=== PATIENT | male | born 1990 | race Caucasian/White ===

== ENCOUNTER 2019-09-17 10:26 | Day surgery (SDC) | payer OTHER ==
[2019-09-17] MEDS ORDERED: HYDROmorphone 0.5 MG/0.5 ML Syringe IVPUSH ONE (10:58)
[2019-09-17] MEDS ORDERED: Ondansetron 4 MG/2 ML SDV IVPUSH ONE (10:58)
[2019-09-17] MEDS ORDERED: Sodium Chloride 0.9% 1,000 ML IV SCH (11:00)
--- NOTE | 2019-09-17 11:03 | EDM.PDOC ---
<Eulogio Banks R - Last Filed: 09/17/19 10:58> ED HPI GENERAL MEDICAL PROBLEM - General Chief Complaint: Abdominal Pain Stated Complaint: R SIDE ABDOMINAL PAIN UNDER RIBS Time Seen by Provider: 09/17/19 10:32 Source of Information: Reports: Patient History Limitations: Reports: No Limitations - History of Present Illness INITIAL COMMENTS - FREE TEXT/NARRATIVE: Joby is a 29 YO male that presents to the ED for RUQ pain. Pain began suddenly at approximately 0800. Described as a sharp, stabbing sensation with radiation to the right back. Rated at a 9/10 and is constant. Nothing makes the pain better or worse. He has had two similar episodes over the past month with each lasting about 3 hours. Denies nausea, vomiting, fever, shortness of breath, chest pain, urinary changes, constipation, or diarrhea. Denies drinking alcohol. No OTC medications taken for symptom relief. Onset: Today, Sudden Onset Date: 09/17/19 Onset Time: 08:00 Duration: Hour(s): Location: Reports: Abdomen Quality: Reports: Sharp, Stabbing Improves with: Reports: None Worsens with: Reports: None Right Upper Abdomen Pain Score (Numeric/FACES): 9 - Related Data Allergies Allergy/AdvReac Type Severity Reaction Status Date / Time No Known Allergies Allergy Verified 09/17/19 10:36 Home Meds: Home Meds Acetaminophen/HYDROcodone [[place] 325-5 MG] 1 tab PO Q4H PRN 14 Days #25 tablet 09/17/19 [Rx] Cholecalciferol (Vitamin D3) [Vitamin D3] 1,000 unit PO DAILY 09/17/19 [History] Docusate Sodium [Colace] 100 mg PO BID 20 Days #40 cap 09/17/19 [Rx] Ibuprofen 600 mg PO Q6HR PRN 20 Days #80 tablet 09/17/19 [Rx] gemfibroziL [Gemfibrozil] 600 mg PO DAILY 09/17/19 [History] Past Medical History Cardiovascular History: Reports: High Cholesterol - Past Surgical History Neurological Surgical History: Reports: Other (See Below) Other Neurological Surgeries/Procedures: Nerve Stimulator Musculoskeletal Surgical History: Reports: Other (See Below) Other Musculoskeletal Surgeries/Procedures:: Left ankle surgery. Social & Family History - Tobacco Use Smoking Status *Q: Never Smoker - Caffeine Use Caffeine Use: Reports: Soda - Alcohol Use Alcohol Use History: No - Recreational Drug Use Recreational Drug Use: No ED ROS GENERAL - Review of Systems Review Of Systems: See Below Constitutional: Denies: Fever Respiratory: Denies: Shortness of Breath Cardiovascular: Denies: Chest Pain GI/Abdominal: Reports: Abdominal Pain. Denies: Constipation, Diarrhea, Nausea, Vomiting : Denies: Dysuria, Flank Pain, Frequency, Urgency, Urinary Retention ED EXAM, GI/ABD - Physical Exam Exam: See Below Exam Limited By: No Limitations General Appearance: Alert, Mild Distress (Discomfort due to pain. ) Head: Atraumatic, Normocephalic Respiratory/Chest: No Respiratory Distress, Lungs Clear, Normal Breath Sounds, No Accessory Muscle Use, Chest Non-Tender Cardiovascular: Regular Rate, Rhythm, No Gallop, No JVD, No Murmur, No Rub GI/Abdominal Exam: Normal Bowel Sounds, Soft, No Distention, Tender (Tenderness to palpation in RUQ.) Neurological: Alert, Oriented, Normal Cognition Skin Exam: Warm, Dry, Normal Color Departure - Departure Disposition: DC/Tfer to [facility] Access [facility] Clinical Impression: Sludge in gallbladder Abdominal pain Qualifiers: Abdominal location: right upper quadrant Qualified Code(s): R10.11 - Right upper quadrant pain - Discharge Information Sepsis Event Note (ED) - Evaluation Sepsis Screening Result: No Definite Risk <John Paul Larry - Last Filed: 09/17/19 18:10> ED HPI GENERAL MEDICAL PROBLEM - General Source of Information: Reports: RN Notes Reviewed ED ROS GENERAL - Review of Systems HEENT: Reports: No Symptoms Musculoskeletal: Reports: Back Pain Skin: Reports: No Symptoms Neurological: Reports: No Symptoms ED EXAM, GI/ABD - Physical Exam General Appearance: Moderate Distress GI/Abdominal Exam: Guarding (mild). No: Rebound Extremities: Normal Inspection, Normal Range of Motion Neurological: No Motor/Sensory Deficits Skin Exam: No Rash Course - Vital Signs Last Recorded V/S: Last Vital Signs Temp 97.4 F 09/17/19 17:45 Pulse 92 09/17/19 10:32 Resp 18 09/17/19 17:45 BP 115/73 09/17/19 17:45 Pulse Ox 100 09/17/19 17:45 - Orders/Labs/Meds Orders: Active Orders 24 hr Category Date Time Status Patient Status [ADT] Routine ADT 09/17/19 14:30 Active Communication Order [RC] ASDIRECTED Care 09/17/19 15:25 Active Cooling Warming Measures [RC] ASDIRECTED Care 09/17/19 15:25 Active Oxygen Therapy [RC] ASDIRECTED Care 09/17/19 15:25 Active Pulse Oximetry [RC] ASDIRECTED Care 09/17/19 15:25 Active Ready for Discharge [RC] PER UNIT ROUTINE Care 09/17/19 16:49 Active Vital Signs [RC] Q15M Care 09/17/19 15:25 Active Abdomen Ltd [US] Stat Exams 09/17/19 10:59 Taken HYDROmorphone [Dilaudid] Med 09/17/19 15:25 Active 0.5 mg IVPUSH Q10M PRN Sodium Chloride 0.9% [Normal Saline] 1,000 ml Med 09/17/19 11:00 Active IV ASDIRECTED fentaNYL [Sublimaze] Med 09/17/19 15:25 Active 100 mcg IVPUSH Q5M PRN Schedule Procedure [COMM] Stat Oth 09/17/19 14:32 Ordered Medication Orders Fentanyl (Sublimaze) 100 mcg IVPUSH Q5M PRN PRN Reason: Pain Last Admin: 09/17/19 17:15 Dose: 100 mcg Documented by: EULOGIO Hydromorphone HCl (Dilaudid) 0.5 mg IVPUSH Q10M PRN PRN Reason: Pain (severe 7-10) Sodium Chloride (Normal Saline) 1,000 mls @ 150 mls/hr IV ASDIRECTED JA Last Admin: 09/17/19 11:19 Dose: 150 mls/hr Documented by: HORACIO Labs: Laboratory Tests 09/17/19 09/17/19 09/17/19 Range/Units 10:40 10:40 10:40 WBC 9.76 H (4.23-9.07) K/mm3 RBC 5.75 (4.63-6.08) M/mm3 Hgb 16.8 (13.7-17.5) gm/dl Hct 49.3 (40.1-51.0) % MCV 85.7 (79.0-92.2) fl MCH 29.2 (25.7-32.2) pg MCHC 34.1 (32.2-35.5) g/dl RDW Std Deviation 41.6 (35.1-43.9) fL Plt Count 314 (163-337) K/mm3 MPV 11.0 (9.4-12.3) fl Neut % (Auto) 58.9 (34.0-67.9) % Lymph % (Auto) 27.5 (21.8-53.1) % [place] % (Auto) 8.3 (5.3-12.2) % Eos % (Auto) 4.3 (0.8-7.0) Baso % (Auto) 0.8 (0.1-1.2) % Neut # (Auto) 5.75 H (1.78-5.38) K/mm3 Lymph # (Auto) 2.68 (1.32-3.57) K/mm3 [place] # (Auto) 0.81 (0.30-0.82) K/mm3 Eos # (Auto) 0.42 (0.04-0.54) K/mm3 Baso # (Auto) 0.08 (0.01-0.08) K/mm3 Sodium 138 (136-145) mEq/L Potassium 4.0 (3.5-5.1) mEq/L Chloride 104 (98-107) mEq/L Carbon Dioxide 24 (21-32) mEq/L Anion Gap 14.0 (5-15) BUN 14 (7-18) mg/dL Creatinine 1.3 (0.7-1.3) mg/dL Est Cr Clr Drug Dosing 90.37 mL/min Estimated GFR (MDRD) > 60 (>60) mL/min BUN/Creatinine Ratio 10.8 L (14-18) Glucose 98 (74-106) mg/dL Calcium 9.0 (8.5-10.1) mg/dL Total Bilirubin 0.3 (0.2-1.0) mg/dL GGT 28 (15-85) U/L AST 27 (15-37) U/L ALT 61 (16-63) U/L Alkaline Phosphatase 107 (46-116) U/L Total Protein 7.7 (6.4-8.2) g/dl Albumin 4.4 (3.4-5.0) g/dl Globulin 3.3 gm/dL Albumin/Globulin Ratio 1.3 (1-2) Lipase 82 (73-393) U/L COVID-19 (JENNIE) (NEGATIVE) 09/17/19 Range/Units 14:23 WBC (4.23-9.07) K/mm3 RBC (4.63-6.08) M/mm3 Hgb (13.7-17.5) gm/dl Hct (40.1-51.0) % MCV (79.0-92.2) fl MCH (25.7-32.2) pg MCHC (32.2-35.5) g/dl RDW Std Deviation (35.1-43.9) fL Plt Count (163-337) K/mm3 MPV (9.4-12.3) fl Neut % (Auto) (34.0-67.9) % Lymph % (Auto) (21.8-53.1) % [place] % (Auto) (5.3-12.2) % Eos % (Auto) (0.8-7.0) Baso % (Auto) (0.1-1.2) % Neut # (Auto) (1.78-5.38) K/mm3 Lymph # (Auto) (1.32-3.57) K/mm3 [place] # (Auto) (0.30-0.82) K/mm3 Eos # (Auto) (0.04-0.54) K/mm3 Baso # (Auto) (0.01-0.08) K/mm3 Sodium (136-145) mEq/L Potassium (3.5-5.1) mEq/L Chloride (98-107) mEq/L Carbon Dioxide (21-32) mEq/L Anion Gap (5-15) BUN (7-18) mg/dL Creatinine (0.7-1.3) mg/dL Est Cr Clr Drug Dosing mL/min Estimated GFR (MDRD) (>60) mL/min BUN/Creatinine Ratio (14-18) Glucose (74-106) mg/dL Calcium (8.5-10.1) mg/dL Total Bilirubin (0.2-1.0) mg/dL GGT (15-85) U/L AST (15-37) U/L ALT (16-63) U/L Alkaline Phosphatase (46-116) U/L Total Protein (6.4-8.2) g/dl Albumin (3.4-5.0) g/dl Globulin gm/dL Albumin/Globulin Ratio (1-2) Lipase (73-393) U/L COVID-19 (JENNIE) Negative (NEGATIVE) Meds: Medications Generic Name Dose Route Start Last Admin Trade Name Freq PRN Reason Stop Dose Admin Fentanyl 100 mcg 09/17/19 15:25 09/17/19 17:15 Sublimaze IVPUSH 100 mcg Q5M PRN Administration Pain Hydromorphone HCl 0.5 mg 09/17/19 15:25 Dilaudid IVPUSH Q10M PRN Pain (severe 7-10) Sodium Chloride 1,000 mls @ 150 mls/hr 09/17/19 11:00 09/17/19 11:19 Normal Saline IV 150 mls/hr ASDIRECTED JA Administration Discontinued Medications Generic Name Dose Route Start Last Admin Trade Name Freq PRN Reason Stop Dose Admin Bupivacaine HCl/Epinephrine Bitart Confirm 09/17/19 14:10 09/17/19 15:25 Marcaine 0.5%/Epinephrine 1:200,000 Administered 09/17/19 14:11 30 ml Dose Administration 50 ml .ROUTE .STK-MED ONE Fentanyl Confirm 09/17/19 14:24 Sublimaze Administered 09/17/19 14:25 Dose 250 mcg .ROUTE .STK-MED ONE Glycopyrrolate Confirm 09/17/19 15:34 Administered 09/17/19 15:35 Dose 1 mg .ROUTE .STK-MED ONE Hydromorphone HCl 0.5 mg 09/17/19 10:58 09/17/19 11:21 Dilaudid IVPUSH 09/17/19 10:59 0.5 mg ONETIME ONE Administration Hydromorphone HCl Confirm 09/17/19 15:37 Dilaudid Administered 09/17/19 15:38 Dose 0.5 mg .ROUTE .STK-MED ONE Cefuroxime Sodium 1.5 gm/ 50 mls @ 100 mls/hr 09/17/19 13:21 Sodium Chloride IV 09/17/19 13:50 ONETIME ONE Cefepime HCl 2 gm/ Premix 50 mls @ 100 mls/hr 09/17/19 13:38 09/17/19 13:50 IV 09/17/19 14:07 100 mls/hr ONETIME ONE Administration Lidocaine HCl Confirm 09/17/19 14:25 Xylocaine-Mpf 1% Administered 09/17/19 14:26 Dose 4 mls @ as directed .ROUTE .STK-MED ONE Ketorolac Tromethamine Confirm 09/17/19 16:15 Toradol Administered 09/17/19 16:16 Dose 30 mg .ROUTE .STK-MED ONE Lidocaine/Epinephrine Confirm 09/17/19 14:10 09/17/19 15:25 Xylocaine 1% With Epinephrine 1:100,000 Administered 09/17/19 14:11 30 ml Dose Administration 40 ml .ROUTE .STK-MED ONE Midazolam HCl Confirm 09/17/19 14:24 Versed 1 Mg/Ml Administered 09/17/19 14:25 Dose 4 mg .ROUTE .STK-MED ONE Neostigmine Methylsulfate Confirm 09/17/19 16:09 Neostigmine Methylsulfate Administered 09/17/19 16:10 Dose 5 mg .ROUTE .STK-MED ONE Ondansetron HCl 4 mg 09/17/19 10:58 09/17/19 11:19 Zofran IVPUSH 09/17/19 10:59 4 mg ONETIME ONE Administration Ondansetron HCl Confirm 09/17/19 14:25 Zofran Administered 09/17/19 14:26 Dose 8 mg .ROUTE .STK-MED ONE Propofol Confirm 09/17/19 14:24 Diprivan 20 Ml Administered 09/17/19 14:25 Dose 200 mg .ROUTE .STK-MED ONE Rocuronium [place] Confirm 09/17/19 14:23 Zemuron Administered 09/17/19 14:24 Dose 50 mg .ROUTE .STK-MED ONE - Re-Assessments/Exams Free Text/Narrative Re-Assessment/Exam: 09/17/19 13:41 US showed enlarged Gallbladder, 1.6 cm sludgeball in the fundus, 1.3 stone neck region. Destiney up to 2.2 mm thjick. common bile duct is nl. Have given dilaudid 0.5 mg IV and that has helped quite a lot but still has some pain R upper abd, rates it a 3 at this time. He is still moderately tender R upper abd. He lives [place] from [facility] in [place]. It does not seem jorgensen to send him home right now with his pain and tenderness still what it is. His WBC is elevated but labs otherwise nl. Have discussed with Dr Agustin, she see him with plan to take it out this afternoon. IV abx ordered. 09/17/19 13:44 09/17/19 13:50. Initial hx and exam was done by A EVY Banks student. I agree with his hx and exam as documented. I have also interviewed and examined patient. Findings and plan discussed with patient and his mother present in room. Departure - Departure Time of Disposition: 13:45 Condition: Fair Sepsis Event Note (ED) - Focused Exam Vital Signs: Vital Signs Temp Pulse Resp BP Pulse Ox Pulse Ox 09/17/19 17:45 97.4 F 18 115/73 100 09/17/19 17:30 15 110/71 100 09/17/19 17:25 99 09/17/19 17:15 10 L 127/78 100 09/17/19 17:12 100 09/17/19 17:06 100 09/17/19 17:00 12 135/91 H 100 09/17/19 16:57 100 09/17/19 16:45 13 125/77 100 09/17/19 16:41 97.6 F 10 L 117/80 100 100 09/17/19 10:32 96.8 F L 92 16 160/109 H 99 - My Orders Last 24 Hours: My Active Orders 09/17/19 10:59 Abdomen Ltd [US] Stat 09/17/19 11:00 Sodium Chloride 0.9% [Normal Saline] 1,000 ml IV ASDIRECTED 09/17/19 14:30 Patient Status [ADT] Routine 09/17/19 14:32 Schedule Procedure [COMM] Stat - Assessment/Plan Last 24 Hours: My Active Orders 09/17/19 10:59 Abdomen Ltd [US] Stat 09/17/19 11:00 Sodium Chloride 0.9% [Normal Saline] 1,000 ml IV ASDIRECTED 09/17/19 14:30 Patient Status [ADT] Routine 09/17/19 14:32 Schedule Procedure [COMM] Stat
[2019-09-17] MEDS ORDERED: Cefepime 2 GM in Premix Bag 1 BAG IV ONE (13:38)
--- NOTE | 2019-09-17 14:04 | PCM.HP.2 ---
H&P History of Present Illness - General Date of Service: 09/17/19 Source of Information: Patient, Provider History Limitations: Reports: No Limitations - History of Present Illness Initial Comments - Free Text/Narative: The patient is a 29-year-old gentleman who presents with right upper quadrant pain occurring for approximately 5 hours. He reports having eaten donuts the night before, and his pain started around 8 AM this morning. The pain radiates down his right side. Has had 2 prior episodes of this pain in the past. He denies any nausea or vomiting. He has had no pale stools or dark urine. He denies any jaundice or icterus. He presented to the emergency room and had appropriate work-up including CBC, CMP and ultrasound. He had mild elevation in his white blood cell count but normal liver enzymes and normal total bilirubin. His ultrasound showed evidence of cholelithiasis. His pain is improved with pain medication but did not completely resolve. Right Upper Abdomen Pain Score (Numeric/FACES): 9 - Related Data Allergies/Adverse Reactions: Allergies Allergy/AdvReac Type Severity Reaction Status Date / Time No Known Allergies Allergy Verified 09/17/19 10:36 Home Medications: Home Meds Cholecalciferol (Vitamin D3) [Vitamin D3] 1,000 unit PO DAILY 09/17/19 [History] gemfibroziL [Gemfibrozil] 600 mg PO DAILY 09/17/19 [History] Past Medical History HEENT History: Reports: None Cardiovascular History: Reports: High Cholesterol Respiratory History: Reports: None Gastrointestinal History: Reports: None Genitourinary History: Reports: None Psychiatric History: Reports: None Endocrine/Metabolic History: Reports: None Hematologic History: Reports: None Immunologic History: Reports: None Oncologic (Cancer) History: Reports: None Dermatologic History: Reports: None - Infectious Disease History Infectious Disease History: Reports: None - Past Surgical History Neurological Surgical History: Reports: Other (See Below) Other Neurological Surgeries/Procedures: Nerve Stimulator Musculoskeletal Surgical History: Reports: Other (See Below) Other Musculoskeletal Surgeries/Procedures:: Left ankle surgery. Social & Family History - Family History Cardiac: Reports: None Respiratory: Reports: None - Tobacco Use Smoking Status *Q: Never Smoker - Caffeine Use Caffeine Use: Reports: Soda - Recreational Drug Use Recreational Drug Use: No H&P Review of Systems - Review of Systems: Review Of Systems: See Below General: Reports: No Symptoms HEENT: Reports: No Symptoms Pulmonary: Reports: No Symptoms Cardiovascular: Reports: No Symptoms Gastrointestinal: Reports: Abdominal Pain. Denies: Constipation, Diarrhea, Hematochezia, Melena Genitourinary: Reports: No Symptoms Musculoskeletal: Reports: Leg Pain Skin: Reports: No Symptoms Neurological: Reports: No Symptoms Hematologic/Lymphatic: Reports: No Symptoms Exam - Exam Exam: See Below - Vital Signs Vital Signs: Last Vital Signs Temp 36.0 C L 09/17/19 10:32 Pulse 92 09/17/19 10:32 Resp 16 09/17/19 10:32 BP 160/109 H 09/17/19 10:32 Pulse Ox 99 09/17/19 10:32 Weight: 96.162 kg - Exam Quality Assessment: No: Supplemental Oxygen General: Alert, Oriented HEENT: Conjunctiva Clear, EOMI Neck: Supple Lungs: Clear to Auscultation, Normal Respiratory Effort Cardiovascular: Regular Rate, Regular Rhythm GI/Abdominal Exam: Soft, No Distention, Tender (in RUQ), Hernia (small umbilical hernia) Extremities: No Pedal Edema Peripheral Pulses: 2+: Dorsalis Pedis (L), Dorsalis Pedis (R) Skin: Warm, Dry, Intact - Patient Data Lab Results Last 24 hrs: Laboratory Results - last 24 hr 09/17/19 09/17/19 09/17/19 Range/Units 10:40 10:40 10:40 WBC 9.76 H (4.23-9.07) K/mm3 RBC 5.75 (4.63-6.08) M/mm3 Hgb 16.8 (13.7-17.5) gm/dl Hct 49.3 (40.1-51.0) % MCV 85.7 (79.0-92.2) fl MCH 29.2 (25.7-32.2) pg MCHC 34.1 (32.2-35.5) g/dl RDW Std Deviation 41.6 (35.1-43.9) fL Plt Count 314 (163-337) K/mm3 MPV 11.0 (9.4-12.3) fl Neut % (Auto) 58.9 (34.0-67.9) % Lymph % (Auto) 27.5 (21.8-53.1) % [place] % (Auto) 8.3 (5.3-12.2) % Eos % (Auto) 4.3 (0.8-7.0) Baso % (Auto) 0.8 (0.1-1.2) % Neut # (Auto) 5.75 H (1.78-5.38) K/mm3 Lymph # (Auto) 2.68 (1.32-3.57) K/mm3 [place] # (Auto) 0.81 (0.30-0.82) K/mm3 Eos # (Auto) 0.42 (0.04-0.54) K/mm3 Baso # (Auto) 0.08 (0.01-0.08) K/mm3 Sodium 138 (136-145) mEq/L Potassium 4.0 (3.5-5.1) mEq/L Chloride 104 (98-107) mEq/L Carbon Dioxide 24 (21-32) mEq/L Anion Gap 14.0 (5-15) BUN 14 (7-18) mg/dL Creatinine 1.3 (0.7-1.3) mg/dL Est Cr Clr Drug Dosing 90.37 mL/min Estimated GFR (MDRD) > 60 (>60) mL/min BUN/Creatinine Ratio 10.8 L (14-18) Glucose 98 (74-106) mg/dL Calcium 9.0 (8.5-10.1) mg/dL Total Bilirubin 0.3 (0.2-1.0) mg/dL GGT 28 (15-85) U/L AST 27 (15-37) U/L ALT 61 (16-63) U/L Alkaline Phosphatase 107 (46-116) U/L Total Protein 7.7 (6.4-8.2) g/dl Albumin 4.4 (3.4-5.0) g/dl Globulin 3.3 gm/dL Albumin/Globulin Ratio 1.3 (1-2) Lipase 82 (73-393) U/L Result Diagrams: 09/17/19 10:40 09/17/19 10:40 Sepsis Event Note - Evaluation Sepsis Screening Result: No Definite Risk - Focused Exam Vital Signs: Vital Signs Temp Pulse Resp BP Pulse Ox 09/17/19 10:32 36.0 C L 92 16 160/109 H 99 Date Exam was Performed: 09/17/19 Time Exam was Performed: 14:49 *Q Meaningful Use (ADM) - VTE Risk Assess *Q Each Risk Factor Represents 1 Point: Minor Surgery Planned, Obesity ( BMI > 25 kg/m2) Total Score 1 Point Risk Factors: 2 - Problem List (1) Acute cholecystitis SNOMED Code(s): 56809414 ICD Code: K81.0 - ACUTE CHOLECYSTITIS Status: Acute Current Visit: Yes Problem List Initiated/Reviewed/Updated: Yes Orders Last 24hrs: Active Orders 24 hr Category Date Time Status Abdomen Ltd [US] Stat Exams 09/17/19 10:59 Taken Cefepime [Maxipime in D5W 2 GM/50 ML] 2 gm Med 09/17/19 13:38 Active Premix Bag 1 bag IV ONETIME Sodium Chloride 0.9% [Normal Saline] 1,000 ml Med 09/17/19 11:00 Active IV ASDIRECTED Medication Orders Sodium Chloride (Normal Saline) 1,000 mls @ 150 mls/hr IV ASDIRECTED JA Last Admin: 09/17/19 11:19 Dose: 150 mls/hr Documented by: HORACIO Cefepime HCl 2 gm/ Premix 50 mls @ 100 mls/hr IV ONETIME ONE Stop: 09/17/19 14:07 Last Admin: 09/17/19 13:50 Dose: 100 mls/hr Documented by: HORACIO Assessment/Plan Comment:: 29-year-old male with early acute cholecystitis - Plan for OR and laparoscopic cholecystectomy, possible open. Discussed risks of bleeding, infection, possible intra-abdominal injury and possible injury to bile ducts. The patient's written consent was obtained -IV cefuroxime 2 g x 1 -NPO -Plan for discharge home later today if patient is doing well. We will assess need for inpatient stay based on intra-operative findings Anny Cueto MD General surgery - Mortality Measure Prognosis:: Good
--- NOTE | 2019-09-17 14:08 | PCM.PREANE ---
Preanesthetic Assessment - Procedure Proposed Procedure: Laparoscopic Cholecystectomy - Anesthesia/Transfusion/Family Hx Anesthesia History: Prior Anesthesia Without Reaction Transfusion History: No Prior Transfusion(s) - Review of Systems General: No Symptoms Pulmonary: No Symptoms Cardiovascular: No Symptoms Gastrointestinal: No Symptoms Neurological: No Symptoms Other: Reports: None - Physical Assessment NPO Status Date: 09/16/19 NPO Status Time: 23:30 Vital Signs: Last Vital Signs Temp 96.8 F L 09/17/19 10:32 Pulse 92 09/17/19 10:32 Resp 16 09/17/19 10:32 BP 160/109 H 09/17/19 10:32 Pulse Ox 99 09/17/19 10:32 Height: 1.83 m Weight: 96.162 kg ASA Class: 2 Mental Status: Alert & Oriented x3 Airway Class: Mallampati = 1 Dentition: Reports: Normal Dentition Thyro-Mental Finger Breadths: 3 Mouth Opening Finger Breadths: 3 ROM/Head Extension: Full Lungs: Clear to Auscultation, Normal Respiratory Effort Cardiovascular: Regular Rate, Regular Rhythm - Lab Values: Laboratory Last Values WBC 9.76 K/mm3 (4.23-9.07) H 09/17/19 10:40 RBC 5.75 M/mm3 (4.63-6.08) 09/17/19 10:40 Hgb 16.8 gm/dl (13.7-17.5) 09/17/19 10:40 Hct 49.3 % (40.1-51.0) 09/17/19 10:40 MCV 85.7 fl (79.0-92.2) 09/17/19 10:40 MCH 29.2 pg (25.7-32.2) 09/17/19 10:40 MCHC 34.1 g/dl (32.2-35.5) 09/17/19 10:40 RDW Std Deviation 41.6 fL (35.1-43.9) 09/17/19 10:40 Plt Count 314 K/mm3 (163-337) 09/17/19 10:40 MPV 11.0 fl (9.4-12.3) 09/17/19 10:40 Neut % (Auto) 58.9 % (34.0-67.9) 09/17/19 10:40 Lymph % (Auto) 27.5 % (21.8-53.1) 09/17/19 10:40 [place] % (Auto) 8.3 % (5.3-12.2) 09/17/19 10:40 Eos % (Auto) 4.3 (0.8-7.0) 09/17/19 10:40 Baso % (Auto) 0.8 % (0.1-1.2) 09/17/19 10:40 Neut # (Auto) 5.75 K/mm3 (1.78-5.38) H 09/17/19 10:40 Lymph # (Auto) 2.68 K/mm3 (1.32-3.57) 09/17/19 10:40 [place] # (Auto) 0.81 K/mm3 (0.30-0.82) 09/17/19 10:40 Eos # (Auto) 0.42 K/mm3 (0.04-0.54) 09/17/19 10:40 Baso # (Auto) 0.08 K/mm3 (0.01-0.08) 09/17/19 10:40 Sodium 138 mEq/L (136-145) 09/17/19 10:40 Potassium 4.0 mEq/L (3.5-5.1) 09/17/19 10:40 Chloride 104 mEq/L (98-107) 09/17/19 10:40 Carbon Dioxide 24 mEq/L (21-32) 09/17/19 10:40 Anion Gap 14.0 (5-15) 09/17/19 10:40 BUN 14 mg/dL (7-18) 09/17/19 10:40 Creatinine 1.3 mg/dL (0.7-1.3) 09/17/19 10:40 Est Cr Clr Drug Dosing 90.37 mL/min 09/17/19 10:40 Estimated GFR (MDRD) > 60 mL/min (>60) 09/17/19 10:40 BUN/Creatinine Ratio 10.8 (14-18) L 09/17/19 10:40 Glucose 98 mg/dL (74-106) 09/17/19 10:40 Calcium 9.0 mg/dL (8.5-10.1) 09/17/19 10:40 Total Bilirubin 0.3 mg/dL (0.2-1.0) 09/17/19 10:40 GGT 28 U/L (15-85) 09/17/19 10:40 AST 27 U/L (15-37) 09/17/19 10:40 ALT 61 U/L (16-63) 09/17/19 10:40 Alkaline Phosphatase 107 U/L (46-116) 09/17/19 10:40 Total Protein 7.7 g/dl (6.4-8.2) 09/17/19 10:40 Albumin 4.4 g/dl (3.4-5.0) 09/17/19 10:40 Globulin 3.3 gm/dL 09/17/19 10:40 Albumin/Globulin Ratio 1.3 (1-2) 09/17/19 10:40 Lipase 82 U/L (73-393) 09/17/19 10:40 - Allergies Allergies/Adverse Reactions: Allergies Allergy/AdvReac Type Severity Reaction Status Date / Time No Known Allergies Allergy Verified 09/17/19 10:36 - Acknowledgements Anesthesia Type Planned: General Anesthesia Pt an Appropriate Candidate for the Planned Anesthesia: Yes Alternatives and Risks of Anesthesia Discussed w Pt/Guardian: Yes Pt/Guardian Understands and Agrees with Anesthesia Plan: Yes PreAnesthesia Questionnaire Cardiovascular History: Reports: High Cholesterol Neurological History: Reports: Other (See Below) Other Neuro History: Chronic peripheral pain syndrome, nerve stimulator implanted Hematologic History: Reports: None Immunologic History: Reports: None Oncologic (Cancer) History: Reports: None Dermatologic History: Reports: None - Infectious Disease History Infectious Disease History: Reports: None - Past Surgical History Neurological Surgical History: Reports: Other (See Below) Other Neurological Surgeries/Procedures: Nerve Stimulator Musculoskeletal Surgical History: Reports: Other (See Below) Other Musculoskeletal Surgeries/Procedures:: Left ankle surgery. - SUBSTANCE USE Smoking Status *Q: Never Smoker Recreational Drug Use History: No - HOME MEDS Home Medications: Home Meds Cholecalciferol (Vitamin D3) [Vitamin D3] 1,000 unit PO DAILY 09/17/19 [History] gemfibroziL [Gemfibrozil] 600 mg PO DAILY 09/17/19 [History] - CURRENT (IN HOUSE) MEDS Current Meds: Current Medications Sodium Chloride (Normal Saline) 1,000 mls @ 150 mls/hr IV ASDIRECTED JA Last Admin: 08/01/20 11:19 Dose: 150 mls/hr Documented by: Cefepime HCl 2 gm/ Premix 50 mls @ 100 mls/hr IV ONETIME ONE Stop: 09/17/19 14:07 Last Admin: 09/17/19 13:50 Dose: 100 mls/hr Documented by: Discontinued Medications Hydromorphone HCl (Dilaudid) 0.5 mg IVPUSH ONETIME ONE Stop: 09/17/19 10:59 Last Admin: 09/17/19 11:21 Dose: 0.5 mg Documented by: Cefuroxime Sodium 1.5 gm/ (Sodium Chloride) 50 mls @ 100 mls/hr IV ONETIME ONE Stop: 09/17/19 13:50 Ondansetron HCl (Zofran) 4 mg IVPUSH ONETIME ONE Stop: 09/17/19 10:59 Last Admin: 09/17/19 11:19 Dose: 4 mg Documented by:
[2019-09-17] MEDS ORDERED: Bupivacaine 0.5%/EPINEPHrine 1:200,000 50 ML MDV ONE (14:10)
[2019-09-17] MEDS ORDERED: Lidocaine 1% with EPINEPHrine 1:100,000 20 ML MDV ONE (14:10)
[2019-09-17] MEDS ORDERED: Rocuronium 50 MG/5 ML Vial ONE (14:23)
[2019-09-17] MEDS ORDERED: Propofol 200 MG/20 ML SDV ONE (14:24)
[2019-09-17] MEDS ORDERED: fentaNYL 250 MCG/5 ML SDV ONE (14:24)
[2019-09-17] MEDS ORDERED: Midazolam 1 MG/ML 2 ML SDV ONE (14:24)
[2019-09-17] MEDS ORDERED: Succinylcholine/Sod PF 100 MG/5 ML SYRINGE IV ONE (14:25)
[2019-09-17] MEDS ORDERED: Lidocaine 1% 4 ML ONE (14:25)
[2019-09-17] MEDS ORDERED: Ondansetron 4 MG/2 ML SDV ONE (14:25)
[2019-09-17] MEDS ORDERED: fentaNYL 100 MCG/2 ML SDV IVPUSH PRN (15:25)
[2019-09-17] MEDS ORDERED: HYDROmorphone 0.5 MG/0.5 ML Syringe IVPUSH PRN (15:25)
[2019-09-17] MEDS ORDERED: HYDROmorphone 0.5 MG/0.5 ML Syringe ONE (15:37)
[2019-09-17] MEDS ORDERED: Ketorolac 30 MG/ML SDV ONE (16:15)
--- NOTE | 2019-09-17 16:38 | PCM.OPNOTE ---
- General Post-Op/Procedure Note Date of Surgery/Procedure: 09/17/19 Operative Procedure(s): Laparoscopic cholecystectomy Findings: Acute cholecystitis Pre Op Diagnosis: Acute cholecystitis Post-Op Diagnosis: Same Anesthesia Technique: General ET Tube Primary Surgeon: Anny Cueto Anesthesia Provider: Stefan Schmidt Pathology: gallbladder with contents Fluid Replacement, Intraop: 1,000 Output, Urine Amount: 0 EBL in mLs: 5 Complications: none apparent Condition: Good
--- NOTE | 2019-09-17 16:42 | PCM.PRNOTE ---
- Free Text/Narrative Note: OPERATIVE REPORT Date of Surgery/Procedure: September 17, 2019 Operative Procedure(s): laparoscopic cholecystectomy Findings: Acute cholecystitis Pre Op Diagnosis: Acute cholecystitis Post-Op Diagnosis: Same Anesthesia Technique: General ET Tube Primary Surgeon: Anny Cueto MD Anesthesia Provider: Stefan Schmidt CRNA Pathology: Gallbladder with contents Fluid Replacement, Intraop: 1000cc Output, Urine Amount: 0cc EBL: 5cc Drain/Tube Comments: none Indication for the procedure: The patient is a 29-year-old gentleman who presented to the emergency department with findings of early acute cholecystitis. The patient was counseled for laparoscopic cholecystectomy, with possible conversion to open. After discussion of the risks of infection, bleeding and injury to the bile duct as well as increased complication from previous intra-abdominal surgery, the patient's consent was obtained. Description of the procedure: The patient presented to the outpatient holding area on the day of the procedure. The history and physical were verified and consent was present and on the chart. The patient was taken back to the operating room and placed in supine position on the operating table. SCD boots were placed and functional prior to the start of the procedure. Preoperative antibiotics were administered in the emergency department, cefuroxime 2 g IV. A surgical timeout was performed. The patient then had induction of general anesthesia and was intubated without difficulty. The patient was prepped and draped in standard surgical fashion. We began by making an supraumbilical incision and deepened this down through subcutaneous fat to the level of the fascia. The patient had an umbilical hernia. This was reduced and the fascia cleared. We bluntly entered through the peritoneum and a finger sweep was done. A stay suture of 0 Vicryl was placed in the fascia. The 12 mm balloon Brady port was then inserted into the abdomen and the balloon inflated. Insufflation was attached and we had appropriate opening pressures. The abdomen was then insufflated to 15 mmHg. We inserted a scope into the abdomen and inspected the area where we had entered. There was no evidence of injury to surrounding structures with no evidence of bile or bleeding. A TAP block was then performed using 1% lidocaine with epinephrine mixed with 0.5% bupivacaine with epinephrine. The patient was then positioned with head up and right side up to facilitate exposure of the gallbladder. We then proceeded with placing our additional ports. A 5mm port was placed in the epigastric region. Two additional 5mm ports placed under direct visualization in the right upper quadrant. Once we had sufficiently exposed the dome of the gallbladder. This was grasped and retracted cephalad. We proceeded with our dissection to expose the cystic duct and cystic artery. We did have a critical view. The cystic duct and artery were then clipped and cut using endoscopic scissors. We then proceeded to fully dissect the gallbladder off of the cystic plate using the Bovie device. The gallbladder was then placed in the Endo Catch bag and withdrawn towards the umbilical port. We then inspected the area of the dissection. A Ray-Balta was used to mop up any blood and fluid. We reinspected and there was no significant bleeding and hemostasis was achieved. We desufflated the abdomen and the ports were removed. The gallbladder was withdrawn through the umbilical port site. We then proceeded to close the umbilical port site using an 0 Vicryl stitch. We had good closure of the fascia. A superficial 4-0 monocryl suture was used to approximate the skin. The skin was covered with Dermabond surgical glue. The patient tolerated the procedure well and was extubated without difficulty. He was transported to the PACU in stable condition. All sponge, needle counts correct. I was scrubbed and actively participated in the entire procedure. No immediate complications noted. Complications: None apparent Condition: Good Anny Cueto MD General Surgery
--- NOTE | 2019-09-17 16:50 | PCM.POSTAN ---
POST ANESTHESIA ASSESSMENT - MENTAL STATUS Mental Status: Somnolent - VITAL SIGNS Vital Signs: Last Vital Signs Temp 97.6 F 09/17/19 16:41 Pulse 92 09/17/19 10:32 Resp 10 L 09/17/19 16:41 BP 117/80 09/17/19 16:41 Pulse Ox 100 09/17/19 16:41 - RESPIRATORY Respiratory Status: Respiratory Rate WNL, Airway Patent (Nasal trumpet #34 placed), O2 Saturation Stable, Supplemental Oxygen - CARDIOVASCULAR CV Status: Pulse Rate WNL, Blood Pressure Stable - GASTROINTESTINAL GI Status: No Symptoms - PAIN Pain Score: 0 - POST OP HYDRATION Hydration Status: Adequate & Stable
--- NOTE | 2019-09-17 17:18 | PCM48HPAN ---
Post Anesthesia Note - EVALUATION WITHIN 48HRS OF ANESTHETIC Vital Signs in Normal Range: Yes Patient Participated in Evaluation: Yes Respiratory Function Stable: Yes Airway Patent: Yes Cardiovascular Function Stable: Yes Hydration Status Stable: Yes Pain Control Satisfactory: Yes Nausea and Vomiting Control Satisfactory: Yes Mental Status Recovered: Yes Vital Signs: Last Vital Signs Temp 97.6 F 09/17/19 16:41 Pulse 92 09/17/19 10:32 Resp 12 09/17/19 17:00 BP 135/91 H 09/17/19 17:00 Pulse Ox 100 09/17/19 17:06 - COMMENTS/OBSERVATIONS Free Text/Narrative:: No anesthesia complications noted.
--- NOTE | 2019-09-18 13:50 | US ---
Limited abdominal ultrasound: Multiple real-time images were obtained of the upper right abdomen. Comparison: No prior abdominal imaging is available. Sludgeball noted within the gallbladder. Gallstone is noted within the gallbladder neck measuring 1.6 cm. No gallbladder wall thickening or biliary duct dilatation is seen. Right kidney shows no hydronephrosis or mass and has a length of 9.8 cm. Pancreas is incompletely seen. Visualized portions of the pancreas shows no discrete abnormality. Inferior vena cava is patent. Main portal vein shows normal hepatopedal flow. Impression: 1. 1.6 cm gallstone within the gallbladder neck. Sludgeball also noted. No gallbladder wall thickening or biliary duct dilatation is seen. 2. Incompletely seen pancreas. 3. Other portions of the right upper quadrant abdominal ultrasound appear within normal limits. Diagnostic code #3 This report was dictated in MDT I agree with preliminary report from Jason, finalized on 09/17/19, 1:53 PM Central Daylight Time
== END 2019-09-17 17:49 | disposition home or self-care (01) ==
LOC: JD.ED 10:26 → JD.SDS 14:34
PROVIDERS: ATTEND Surgery
DX: K80.12 Calculus of gallbladder with acute and chronic cholecystitis without obstruction (principal); E78.00 Pure hypercholesterolemia, unspecified; Z11.59 Encounter for screening for other viral diseases; Z79.899 Other long term (current) drug therapy
CPT/HCPCS: 36415; 47562; 76705; 80053; 82977; 83690; 85025; 87635; 88304; 96365; 96375; 99285; J0330; J0692; J1170; J1885; J2001; J2250; J2405; J2704; J2710; J3010; J3490; J7030; 00790; 99284; U0002